=== PATIENT | male | born 1960 | race Asian ===

== ENCOUNTER 2024-04-23 06:38 | Emergency (ER) | payer BC, OTHER ==
[~2024-04-23] VITALS: Ht 172.7 cm; Wt 81.8 kg
[2024-04-23 06:43] VITALS: TEMP 98.4
[2024-04-23] MEDS ORDERED: AMLO2.5T96 PO (06:55)
[2024-04-23] MEDS ORDERED: ASPI-1450 PO (06:55)
[2024-04-23] MEDS ORDERED: ATOR10TA PO (06:55)
[2024-04-23] MEDS ORDERED: CHOL400T56 PO (06:55)
[2024-04-23 07:36] LABS: APPEARANCE,URINE CLEAR (CLEAR); BILIRUBIN,URINE NEGATIVE (NEGATIVE); COLOR,URINE LIGHT YELLOW (YELLOW); GLUCOSE, URINE (UA) 300-500 mg/dL (NEGATIVE); KETONES,URINE NEGATIVE (NEGATIVE); LEUKOCYTE ESTERASE ,URINE NEGATIVE (NEGATIVE); NITRATE,URINE NEGATIVE (NEGATIVE); OCCULT BLOOD,URINE SMALL (NEGATIVE); PROTEIN,URINE NEGATIVE (NEGATIVE); SPECIFIC GRAVITIY, URINE 1.015 (1.003-1.030); UROBILINOGEN,URINE <=1.0 mg/dL (<=1.0)
[2024-04-23 07:37] LABS: BASOPHILS % (AUTO) 0.3 % (0.0-2.0); EOSINOPHILS % (AUTO) 0.3 % (1.0-6.0); HEMOGLOBIN 13.8 g/dL (13.5-17.5); LYMPHOCYTES # (AUTO) 0.9 K/uL (1.0-4.8); LYMPHOCYTES % (AUTO) 7.3 % (22.0-44.0); MEAN CORPUSCULAR HEMOGLOBIN 30.6 pg (26.0-34.0); MEAN CORPUSCULAR HGB CONC 32.9 G/dL (31.0-37.0); MEAN CORPUSCULAR VOLUME 93 fL (80-100); MONOCYTES # (AUTO) 0.4 K/uL (0.1-1.0); NEUTROPHILS # (AUTO) 11.5 K/uL (1.8-7.7); PLATELET COUNT (AUTO) 244 K/uL (150-450); RED BLOOD CELL COUNT(AUTO) 4.52 MIL/uL (4.50-5.90); RED CELL DISTRIBUTION WIDTH 12.8 % (11.5-14.5); WHITE BLOOD COUNT (AUTO) 12.9 K/uL (4.5-11.0)
[2024-04-23] MEDS: ONDANSETRON HCL 4 MG/2 ML VIAL IVP ONE (07:38)
[2024-04-23 07:39] LABS: NEUTROPHILS % (AUTO) 89.1 % (40.0-70.0)
[2024-04-23 07:49] LABS: BACTERIA,URINE None Seen /HPF (None Seen); WBC,URINE None Seen /HPF (0-5)
[2024-04-23 07:50] LABS: SQUAMOUS EPITHELIAL CELL,UR None Seen /LPF (None Seen)
[2024-04-23 07:52] LABS: ANION GAP 9 mmol/L (8-16); CALCIUM, TOTAL 8.6 mg/dL (8.8-10.5); CARBON DIOXIDE 29 mmol/L (22-29); CHLORIDE 102 mmol/L (98-107); CREATININE 1.08 mg/dL (0.60-1.30); GLOMERULAR FILTR. RATE CALC > 60 mL/min (>60); GLUCOSE,RANDOM 146 mg/dL (70-110); POTASSIUM 4.7 mmol/L (3.5-5.1); SODIUM SERUM 140 mmol/L (136-145); UREA NITROGEN, BLOOD 23 mg/dL (7-18)
[2024-04-23 07:53] LABS: ALANINE AMINOTRANSFERASE 63 U/L (12-78); ALKALINE PHOSPHATASE 93 U/L (46-116); ASPARTATE AMINOTRANSFERASE 35 U/L (15-37); BILIRUBIN,TOTAL 0.3 mg/dL (0.1-1.0); LIPASE 51 U/L (16-77); TOTAL PROTEIN, SERUM 7.8 g/dL (6.4-8.2)
[2024-04-23] MEDS ORDERED: SODIUM CHLORIDE 0.9% 100 ML ONE (08:00)
[2024-04-23] MEDS ORDERED: IOHEXOL 350 MG/ML 100 ML VIAL ONE (08:00)
[2024-04-23] MEDS: KETOROLAC TROMETHAMINE 30 MG/ML VIAL IVP ONE (09:06)
[2024-04-23] MEDS: TAMSULOSIN HCL 0.4 MG CAPSULE PO ONE (09:06)
[2024-04-23 09:10] VITALS: BP 133/84; PULSE 86; RESP 16; O2SAT 98
[2024-04-23] MEDS ORDERED: ONDA-104 PO (09:23)
[2024-04-23] MEDS ORDERED: TAMS0.4C94 PO (09:23)
== END 2024-04-23 09:34 | disposition home or self-care (01) ==
LOC: EMS 06:40
DX: N13.2 Hydronephrosis with renal and ureteral calculous obstruction (principal); E78.00 Pure hypercholesterolemia, unspecified; I10 Essential (primary) hypertension; Z79.82 Long term (current) use of aspirin; Z79.899 Other long term (current) drug therapy
CPT/HCPCS: 99285; 74177; 96374; 96375; 80048; 80076; 81001; 83690; 85025; 36415; Q9967; J1885; J2405; J7050